=== PATIENT | male | born 1935 | race Hispanic/Latino ===

== ENCOUNTER 2017-10-12 06:13 | Inpatient (IN) | payer OTHER ==
[2017-10-10 13:12] LABS: BASOPHILS % (AUTO) 0.9 % (0.0-5.0); EOSINOPHILS % (AUTO) 2.8 % (0.0-8.0); LYMPHOCYTES % (AUTO) 20.6 % (21.0-51.0); MEAN CORPUSCULAR HEMOGLOBIN 31.3 pg (27.0-33.0); MEAN CORPUSCULAR HGB CONC 34.9 g/dL (32.0-36.0); MEAN CORPUSCULAR VOLUME 89.5 fL (79-99); MONOCYTES % (AUTO) 10.8 % (3.0-13.0); NEUTROPHILS % (AUTO) 64.9 % (40.0-77.0); PLATELET COUNT (AUTO) 174 K/uL (130-400); RED BLOOD CELL COUNT(AUTO) 3.47 MIL/uL (4.50-6.20); RED CELL DISTRIBUTION WIDTH 15.2 % (11.0-15.5); WHITE BLOOD COUNT (AUTO) 9.4 K/uL (4.8-10.8)
[2017-10-10 13:29] LABS: INR 0.96 (0.85-1.15); PARTIAL THROMBOPLASTIN TIME 25.4 SEC (26.3-35.5); PROTHROMBIN TIME 10.1 SEC (9.6-11.6)
[2017-10-10 13:31] LABS: ALBUMIN 3.6 g/dL (3.5-5.0); BILIRUBIN,TOTAL 0.4 mg/dL (0.2-1.0); CREATININE 2.4 mg/dL (0.5-1.5); TOTAL PROTEIN, SERUM 7.2 g/dL (6.0-8.3)
[2017-10-10 13:35] LABS: HEMOGLOBIN A1C 5.9 % (4.0-6.0)
[2017-10-10 14:22] VITALS: BP 165/53
[2017-10-12] VITALS (27 sets, daily range): BP systolic 101–196; BP diastolic 42–77
[~2017-10-12] VITALS: Ht 174 cm; Wt 86.6 kg
[~2017-10-12 06:13] MED LIST: ATOR20TA65 PO; CEFUROXIME 1.5GM+NS 100ML 100 ML IV SCH; CEFUROXIME SODIUM 1.5 GM VIAL IVP SCH; CHOL100046 PO; DOCU100C33 PO; ESCI10TA PO; FERR325T22 PO; FINA5TAB41 PO; FURO80TA3 PO; HYDR-4153 PO; SENN-175 PO; TAMS0.4C32 PO; TYL3 PO
[2017-10-12] MEDS ORDERED: OCTYL 2-CYANOACRYLATE 1 EACH TP ONE (06:46)
[2017-10-12] MEDS ORDERED: BACITRACIN 50,000 UNIT VIAL ONE (06:47)
[2017-10-12] MEDS ORDERED: SODIUM CHLORIDE 0.9% 1000ML 1,000 ML IV ONE (06:58)
[2017-10-12] MEDS ORDERED: CEFUROXIME SODIUM 1.5 GM VIAL ONE (06:59)
[2017-10-12] MEDS ORDERED: DELNIDO FORMULA 1 BAG IV ONE (07:35)
[2017-10-12] MEDS ORDERED: THROMBIN-JMI 5000 UNIT/VIAL TP ONE (07:35)
[2017-10-12] MEDS ORDERED: AMIODARONE HCL 900MG/18ML IV ONE ×2 (07:54→10:55)
[2017-10-12] MEDS ORDERED: AMINOCAPROIC ACID 250 MG/ML 20 ML VIAL IV ONE (07:54)
[2017-10-12] MEDS ORDERED: ESMOLOL HCL 10 MG/ML 10 ML VIAL ONE (07:54)
[2017-10-12] MEDS ORDERED: PROTAMINE SULFATE 10 MG/ML 25ML VIAL IV ONE (07:54)
[2017-10-12] MEDS ORDERED: MILRINONE-D5W 20 MG/100 ML 0 ML IV ONE (07:54)
[2017-10-12] MEDS ORDERED: LIDOCAINE PF 2% 5ML ABBOJECT ONE (07:54)
[2017-10-12] MEDS ORDERED: NOREPINEPHRINE BITARTRATE 1 MG/1 ML ML IV ONE ×2 (07:54→09:40)
[2017-10-12] MEDS ORDERED: EPINEPHRINE 1 MG/ML AMPULE ONE (07:54)
[2017-10-12] MEDS ORDERED: ROCURONIUM BROMIDE 10MG/1ML 5ML VL ONE ×3 (07:54→11:04)
[2017-10-12] MEDS ORDERED: HEPARIN SODIUM 1000UNIT/ML 10ML VIAL ONE (07:54)
[2017-10-12] MEDS ORDERED: GLYCOPYRROLATE 0.2 MG/ML 5 ML VIAL ONE (07:54)
[2017-10-12] MEDS ORDERED: PROPOFOL 10 MG/ML 20ML VIAL IV ONE (07:55)
[2017-10-12] MEDS ORDERED: MIDAZOLAM HCL 1 MG/ML 5ML VIAL ONE (07:55)
[2017-10-12] MEDS ORDERED: FENTANYL CITRATE PF 50 MCG/1 ML 2ML VIAL ONE ×3 (07:59→10:46)
[2017-10-12 08:34] LABS: ABG BASE EXCESS 2.4 mmol/L (-2.0-3.0); ABG HCO3 27.5 mmol/L (21.0-28.0); ABG PCO2 45 mmHg (35-48)
[2017-10-12] MEDS ORDERED: NITROGLYCERIN 50 MG/D5% WATER 1 BOT ONE (09:00)
[2017-10-12 09:51] LABS: ABG BASE EXCESS -6.4 mmol/L (-2.0-3.0); ABG HCO3 20.1 mmol/L (21.0-28.0); ABG OXYGEN SATURATION 99.3 % (95.0-99.0); ABG PCO2 45 mmHg (35-48)
[2017-10-12] MEDS ORDERED: SODIUM CHLORIDE 0.9% 500ML 500 ML IV SCH (10:21)
[2017-10-12] MEDS ORDERED: PROTAMINE SULFATE 10 MG/ML 5 ML VIAL ONE (10:22)
[2017-10-12 10:24] LABS: ABG HCO3 26.6 mmol/L (21.0-28.0); ABG OXYGEN SATURATION 99.2 % (95.0-99.0); ABG PCO2 41 mmHg (35-48)
[2017-10-12] MEDS ORDERED: ONDANSETRON HCL 4 MG/2 ML VIAL IV PRN (10:30)
[2017-10-12] MEDS ORDERED: MAGNESIUM 2GM PREMIX 50ML 50 ML IV PRN (10:30)
[2017-10-12] MEDS ORDERED: ALBUMIN (HUMAN) 5% 250 ML IV PRN (10:30)
[2017-10-12] MEDS ORDERED: NICARDIPINE HCL 100 MG in SODIUM CHLORIDE 0.9% 60 ML IV PRN (10:30)
[2017-10-12] MEDS ORDERED: POTASSIUM CHLORIDE 20MEQ/100ML 100 ML IV PRN (10:30)
[2017-10-12] MEDS ORDERED: ACETAMINOPHEN 650 MG SUPPOSITORY RC PRN (10:30)
[2017-10-12] MEDS ORDERED: SODIUM BICARB 8.4% 50ML SYRINGE IV PRN (10:30)
[2017-10-12] MEDS ORDERED: EPINEPHRINE 2 MG in SODIUM CHLORIDE 0.9% 250 ML IV PRN (10:30)
[2017-10-12] MEDS ORDERED: SODIUM CHLORIDE 0.9% 250 ML IV PRN (10:30)
[2017-10-12] MEDS ORDERED: CALCIUM GLUCONATE 1 GM in SODIUM CHLORIDE 0.9% 50 ML IV PRN (10:30)
[2017-10-12] MEDS ORDERED: PROPOFOL 1000 MG/100 ML 100 ML IV PRN (10:30)
[2017-10-12] MEDS ORDERED: NOREPINEPHRINE 4MG/NS 250ML 250 ML IV PRN (10:30)
[2017-10-12] MEDS ORDERED: INSULIN REGULAR, HUMAN 3ML 100 UNIT in SODIUM CHLORIDE 0.9% 99 ML IV SCH ×2 (10:30)
[2017-10-12] MEDS ORDERED: SODIUM CHLORIDE 0.9% 10 ML VIAL IVP PRN (10:30)
[2017-10-12] MEDS ORDERED: SODIUM CHLORIDE 0.9% 1000ML 1,000 ML IV SCH (10:30)
[2017-10-12] MEDS ORDERED: ACETAMINOPHEN 325 MG TAB PO PRN (10:30)
[2017-10-12] MEDS ORDERED: GLUCAGON 1MG KIT 1 MG ML IM PRN (10:30)
[2017-10-12] MEDS ORDERED: MORPHINE SULFATE 4 MG/1ML SYG IV PRN (10:30)
[2017-10-12] MEDS ORDERED: POTASSIUM PHOS 15 mMOL+NS250ML 250 ML IV PRN (10:30)
[2017-10-12] MEDS ORDERED: HYDROCODONE/ACETAMINOPHEN 5/325 MG TAB PO PRN (10:30)
[2017-10-12] MEDS ORDERED: MORPHINE SULFATE 2 MG/ML 1ML SYG IV PRN (10:30)
[2017-10-12] MEDS ORDERED: DEXTROSE 50%-WATER 50 ML DISP.SYRIN IV PRN (10:30)
[2017-10-12] MEDS ORDERED: AMINOCAPROIC ACID 15,000 MG in SODIUM CHLORIDE 0.9% 250 ML IV SCH (10:30)
[2017-10-12] MEDS ORDERED: FENTANYL CITRATE PF 50 MCG/1 ML 5ML AMP IV ONE (10:47)
[2017-10-12 10:53] LABS: ABG BASE EXCESS -6.6 mmol/L (-2.0-3.0); ABG HCO3 19.5 mmol/L (21.0-28.0); ABG OXYGEN SATURATION 98.2 % (95.0-99.0); ABG PCO2 41 mmHg (35-48)
[2017-10-12] MEDS ORDERED: SODIUM BICARB 8.4% 50ML SYRINGE ONE (11:04)
[2017-10-12 11:53] LABS: MEAN CORPUSCULAR HEMOGLOBIN 31.1 pg (27.0-33.0); MEAN CORPUSCULAR HGB CONC 34.7 g/dL (32.0-36.0); MEAN CORPUSCULAR VOLUME 89.5 fL (79-99); PLATELET COUNT (AUTO) 84 K/uL (130-400); RED BLOOD CELL COUNT(AUTO) 3.02 MIL/uL (4.50-6.20); RED CELL DISTRIBUTION WIDTH 15.2 % (11.0-15.5); WHITE BLOOD COUNT (AUTO) 24.9 K/uL (4.8-10.8)
[2017-10-12] MEDS ORDERED: CALCIUM CHLORIDE 100 MG/ML 10 ML SYG IVP ONE (12:00)
[2017-10-12] MEDS ORDERED: SODIUM BICARB 8.4% 50ML SYRINGE IVP ONE (12:00)
[2017-10-12] MEDS ORDERED: ALBUMIN (HUMAN) 25% 50 ML IV ONE (12:00)
[2017-10-12] MEDS ORDERED: MANNITOL 25% 50ML VIAL IV ONE (12:00)
[2017-10-12] MEDS ORDERED: HEPARIN SODIUM 1000UNIT/ML 10ML VIAL IV ONE (12:00)
[2017-10-12 12:04] LABS: CREATININE 2.2 mg/dL (0.5-1.5); MAGNESIUM 2.4 mg/dL (1.80-2.40); PHOSPHORUS 4.1 mg/dL (2.5-4.9); POTASSIUM 3.1 mmol/L (3.5-5.1)
[2017-10-12 12:29] LABS: ABG BASE EXCESS -2.2 mmol/L (-2.0-3.0); ABG HCO3 23.1 mmol/L (21.0-28.0); ABG PCO2 42 mmHg (35-48)
[2017-10-12] MEDS: NITROGLYCERIN 50 MG/D5% WATER 250 BOT IV SCH (14:11)
[2017-10-12 17:29] LABS: CREATININE 2.3 mg/dL (0.5-1.5); MAGNESIUM 2.3 mg/dL (1.80-2.40); POTASSIUM 3.9 mmol/L (3.5-5.1)
[2017-10-12 17:32] LABS: ABG BASE EXCESS 2.1 mmol/L (-2.0-3.0); ABG HCO3 26.8 mmol/L (21.0-28.0); ABG OXYGEN SATURATION 98.2 % (95.0-99.0); ABG PCO2 42 mmHg (35-48)
[2017-10-12] MEDS ORDERED: CEFUROXIME 1.5GM+NS 100ML 100 ML IV SCH (18:30)
[2017-10-12] MEDS ORDERED: WATER FOR INJECTION,STERILE 20 ML VIAL IJ PRN (19:00)
[2017-10-12 20:12] LABS: ABG BASE EXCESS 3.2 mmol/L (-2.0-3.0); ABG HCO3 28.8 mmol/L (21.0-28.0); ABG OXYGEN SATURATION 96.8 % (95.0-99.0); ABG PCO2 49 mmHg (35-48)
[2017-10-12] MEDS: CEFUROXIME SODIUM 1.5 GM VIAL IVP SCH (20:14)
[2017-10-12] MEDS ORDERED: NICARDIPINE IN NACL, ISO-OSM 200 ML IV ONE (20:37)
[2017-10-13] VITALS (25 sets, daily range): BP systolic 97–192; BP diastolic 36–68
[2017-10-13] MEDS: HYDROCODONE/ACETAMINOPHEN 5/325 MG TAB PO PRN ×3 (02:08→22:03)
[2017-10-13] MEDS: NITROGLYCERIN 50 MG/D5% WATER 250 BOT IV SCH (02:13)
[2017-10-13 04:23] LABS: HEMATOCRIT 27.3 % (42-54); MEAN CORPUSCULAR HEMOGLOBIN 30.6 pg (27.0-33.0); MEAN CORPUSCULAR HGB CONC 34.5 g/dL (32.0-36.0); MEAN CORPUSCULAR VOLUME 88.8 fL (79-99); PLATELET COUNT (AUTO) 72 K/uL (130-400); RED BLOOD CELL COUNT(AUTO) 3.07 MIL/uL (4.50-6.20); RED CELL DISTRIBUTION WIDTH 15.4 % (11.0-15.5); WHITE BLOOD COUNT (AUTO) 20.8 K/uL (4.8-10.8)
[2017-10-13 04:33] LABS: PARTIAL THROMBOPLASTIN TIME 25.5 SEC (26.3-35.5); PROTHROMBIN TIME 10.5 SEC (9.6-11.6)
[2017-10-13 04:52] LABS: ALBUMIN 2.7 g/dL (3.5-5.0); BILIRUBIN,TOTAL 1.2 mg/dL (0.2-1.0); CREATININE 2.6 mg/dL (0.5-1.5); MAGNESIUM 2.3 mg/dL (1.80-2.40); POTASSIUM 3.7 mmol/L (3.5-5.1); TOTAL PROTEIN, SERUM 5.7 g/dL (6.0-8.3)
[2017-10-13 04:52] LABS: ABG BASE EXCESS 1.7 mmol/L (-2.0-3.0); ABG HCO3 24.6 mmol/L (21.0-28.0); ABG OXYGEN SATURATION 98.1 % (95.0-99.0); ABG PCO2 34 mmHg (35-48)
[2017-10-13] MEDS ORDERED: NICARDIPINE IN NACL, ISO-OSM 200 ML IV ONE (05:39)
[2017-10-13] MEDS ORDERED: DEXAMETHASONE SOD PHOSPHATE 4 MG/ML 1ML VIAL IVP SCH (08:00)
[2017-10-13] MEDS ORDERED: PHARMACY COMMUNICATION MISC SCH (08:00)
[2017-10-13] MEDS ORDERED: HYDRALAZINE HCL 20 MG/ML VIAL IV PRN (08:00)
[2017-10-13] MEDS: CEFUROXIME SODIUM 1.5 GM VIAL IVP SCH ×2 (08:24→22:30)
[2017-10-13] MEDS: PANTOPRAZOLE SODIUM 40 MG TABLET.DR PO SCH (08:29)
[2017-10-13] MEDS: AMLODIPINE BESYLATE 5 MG TAB PO SCH (08:29)
[2017-10-13] MEDS: DOCUSATE SODIUM 100 MG CAP PO SCH (08:36)
[2017-10-13] MEDS: ASPIRIN 81MG TAB.CHEW PO SCH (08:36)
[2017-10-13] MEDS: FINASTERIDE 5 MG TABLET PO SCH (08:38)
[2017-10-13] MEDS: TAMSULOSIN HCL 0.4 MG CAP.ER.24H PO SCH (08:38)
[2017-10-13] MEDS ORDERED: DEXAMETHASONE IV SCH (08:45)
[2017-10-13] MEDS ORDERED: SODIUM CHLORIDE 0.9% IV SCH (08:45)
[2017-10-13] MEDS: SENNOSIDES 8.6 MG TABLET PO SCH (08:57)
[2017-10-13] MEDS: CITALOPRAM 20 MG TABLET PO SCH (08:58)
[2017-10-13] MEDS ORDERED: FUROSEMIDE 40 MG TABLET PO SCH (09:00)
[2017-10-13] MEDS ORDERED: ONDANSETRON HCL MDV 20ML 2 MG/ML VIAL IVP PRN (13:00)
[2017-10-13] MEDS: ATORVASTATIN CALCIUM 20 MG TABLET PO SCH (22:02)
[2017-10-14] VITALS (24 sets, daily range): BP systolic 95–147; BP diastolic 43–72
[2017-10-14 06:11] LABS: HEMATOCRIT 27.5 % (42-54); MEAN CORPUSCULAR HEMOGLOBIN 30.9 pg (27.0-33.0); MEAN CORPUSCULAR HGB CONC 34.4 g/dL (32.0-36.0); MEAN CORPUSCULAR VOLUME 89.7 fL (79-99); PLATELET COUNT (AUTO) 58 K/uL (130-400); RED BLOOD CELL COUNT(AUTO) 3.06 MIL/uL (4.50-6.20); RED CELL DISTRIBUTION WIDTH 15.7 % (11.0-15.5); WHITE BLOOD COUNT (AUTO) 24.9 K/uL (4.8-10.8)
[2017-10-14 06:22] LABS: INR 1.02 (0.85-1.15); PARTIAL THROMBOPLASTIN TIME 32.7 SEC (26.3-35.5); PROTHROMBIN TIME 10.7 SEC (9.6-11.6)
[2017-10-14 06:25] LABS: B-TYPE NATRIURETIC PEPTIDE 2000 pg/mL (0-100)
[2017-10-14 06:32] LABS: ALBUMIN 2.6 g/dL (3.5-5.0); BILIRUBIN,TOTAL 0.7 mg/dL (0.2-1.0); CREATININE 2.7 mg/dL (0.5-1.5); MAGNESIUM 2.3 mg/dL (1.80-2.40); PHOSPHORUS 4.8 mg/dL (2.5-4.9)
[2017-10-14] MEDS ORDERED: DEXAMETHASONE SOD PHOSPHATE 4 MG/ML 1ML VIAL IVP SCH (08:00)
[2017-10-14 09:03] LABS: BILIRUBIN,URINE NEGATIVE (NEGATIVE); COLOR,URINE YELLOW (YELLOW); GLUCOSE, URINE (UA) NEGATIVE (NEGATIVE); KETONES,URINE 5 mg/dL (NEGATIVE); LEUKOCYTE ESTERASE ,URINE MODERATE (NEGATIVE); NITRATE,URINE NEGATIVE (NEGATIVE); OCCULT BLOOD,URINE LARGE (NEGATIVE); PROTEIN,URINE 100 (NEGATIVE); UROBILINOGEN,URINE 0.2 mg/dL (0.2-1.0)
[2017-10-14 09:09] LABS: APPEARANCE,URINE SLIGHTLY CLOUDY (CLEAR)
[2017-10-14 09:17] LABS: BACTERIA,URINE Moderate /HPF (None Seen)
[2017-10-14] MEDS: CITALOPRAM 20 MG TABLET PO SCH (10:17)
[2017-10-14] MEDS: TAMSULOSIN HCL 0.4 MG CAP.ER.24H PO SCH (10:17)
[2017-10-14] MEDS: DOCUSATE SODIUM 100 MG CAP PO SCH (10:17)
[2017-10-14] MEDS: FUROSEMIDE 40 MG TABLET PO SCH ×2 (10:17→20:05)
[2017-10-14] MEDS: ASPIRIN 81MG TAB.CHEW PO SCH (10:17)
[2017-10-14] MEDS: FINASTERIDE 5 MG TABLET PO SCH (10:18)
[2017-10-14] MEDS: AMLODIPINE BESYLATE 5 MG TAB PO SCH (10:18)
[2017-10-14] MEDS: SENNOSIDES 8.6 MG TABLET PO SCH (10:18)
[2017-10-14] MEDS: PANTOPRAZOLE SODIUM 40 MG TABLET.DR PO SCH (10:18)
[2017-10-14] MEDS ORDERED: CEFTRIAXONE 1GM/D5W 50ML 50 ML IV SCH (12:45)
[2017-10-14] MEDS: CEFTRIAXONE SODIUM 1 GM IVP SCH (17:32)
[2017-10-14] MEDS: ATORVASTATIN CALCIUM 20 MG TABLET PO SCH (20:05)
[2017-10-14] MEDS: HYDROCODONE/ACETAMINOPHEN 5/325 MG TAB PO PRN (21:13)
[2017-10-15] VITALS (25 sets, daily range): BP systolic 102–164; BP diastolic 46–81
[2017-10-15] MEDS: IPRATROPIUM/ALBUTEROL SULFATE 3 ML SOLUTION IH SCH ×6 (02:31→22:32)
[2017-10-15] MEDS ORDERED: FUROSEMIDE 10 MG/ML 4ML VIAL IV SCH (03:30)
[2017-10-15 03:56] LABS: HEMATOCRIT 26.3 % (42-54); MEAN CORPUSCULAR HEMOGLOBIN 29.3 pg (27.0-33.0); MEAN CORPUSCULAR HGB CONC 33.2 g/dL (32.0-36.0); MEAN CORPUSCULAR VOLUME 88.3 fL (79-99); PLATELET COUNT (AUTO) 47 K/uL (130-400); RED BLOOD CELL COUNT(AUTO) 2.98 MIL/uL (4.50-6.20); RED CELL DISTRIBUTION WIDTH 15.5 % (11.0-15.5); WHITE BLOOD COUNT (AUTO) 20.5 K/uL (4.8-10.8)
[2017-10-15 04:21] LABS: % IRON SATURATION 13.3 % (30-44)
[2017-10-15 04:30] LABS: ALBUMIN 2.4 g/dL (3.5-5.0); BILIRUBIN,TOTAL 0.8 mg/dL (0.2-1.0); CREATININE 3.7 mg/dL (0.5-1.5); MAGNESIUM 2.2 mg/dL (1.80-2.40); PHOSPHORUS 5.1 mg/dL (2.5-4.9); POTASSIUM 4.2 mmol/L (3.5-5.1); TOTAL PROTEIN, SERUM 5.9 g/dL (6.0-8.3)
[2017-10-15] MEDS: INSULIN HUMULIN R 100 UNIT/ML 3ML SQ SCH ×4 (06:35→20:29)
[2017-10-15] MEDS ORDERED: DEXAMETHASONE SOD PHOSPHATE 4 MG/ML 1ML VIAL IVP SCH (08:45)
[2017-10-15] MEDS: TAMSULOSIN HCL 0.4 MG CAP.ER.24H PO SCH (08:55)
[2017-10-15] MEDS: CITALOPRAM 20 MG TABLET PO SCH (08:55)
[2017-10-15] MEDS: DOCUSATE SODIUM 100 MG CAP PO SCH (08:55)
[2017-10-15] MEDS: ASPIRIN 81MG TAB.CHEW PO SCH (08:55)
[2017-10-15] MEDS: PANTOPRAZOLE SODIUM 40 MG TABLET.DR PO SCH (08:55)
[2017-10-15] MEDS: FUROSEMIDE 40 MG TABLET PO SCH ×2 (08:56→20:04)
[2017-10-15] MEDS: FINASTERIDE 5 MG TABLET PO SCH (08:56)
[2017-10-15] MEDS: SENNOSIDES 8.6 MG TABLET PO SCH (08:56)
[2017-10-15] MEDS: SODIUM CHLORIDE 0.9% 1000ML 1,000 ML IV SCH (08:57)
[2017-10-15] MEDS: CEFTRIAXONE SODIUM 1 GM IVP SCH (12:00)
[2017-10-15] MEDS: ATORVASTATIN CALCIUM 20 MG TABLET PO SCH (20:04)
[2017-10-16] VITALS (24 sets, daily range): BP systolic 123–165; BP diastolic 44–92
[2017-10-16] MEDS: IPRATROPIUM/ALBUTEROL SULFATE 3 ML SOLUTION IH SCH ×6 (02:18→21:47)
[2017-10-16] MEDS: SODIUM CHLORIDE 0.9% 1000ML 1,000 ML IV SCH (03:13)
[2017-10-16 03:57] LABS: HEMATOCRIT 24.8 % (42-54); MEAN CORPUSCULAR HEMOGLOBIN 31.2 pg (27.0-33.0); MEAN CORPUSCULAR VOLUME 89.2 fL (79-99); PLATELET COUNT (AUTO) 48 K/uL (130-400); RED BLOOD CELL COUNT(AUTO) 2.78 MIL/uL (4.50-6.20); RED CELL DISTRIBUTION WIDTH 15.4 % (11.0-15.5); WHITE BLOOD COUNT (AUTO) 16.2 K/uL (4.8-10.8)
[2017-10-16 04:08] LABS: MAGNESIUM 2.2 mg/dL (1.80-2.40); PHOSPHORUS 5.1 mg/dL (2.5-4.9); POTASSIUM 3.4 mmol/L (3.5-5.1)
[2017-10-16 05:10] LABS: BAND NEUTROPHILS % (MANUAL) 11 % (0-2); LYMPHOCYTES % (MANUAL) 8 % (22-44); MAN.DIFF COMMENT-IMPRESSION MANUAL DIFFERENTIAL; MONOCYTES % (MANUAL) 9 % (2-9); SEGMENTED NEUTROPHILS % 72 % (40-70)
[2017-10-16 05:11] LABS: PLATELET MORPHOLOGY COMMENT MARKED DECREASED
[2017-10-16] MEDS: INSULIN HUMULIN R 100 UNIT/ML 3ML SQ SCH ×4 (06:20→21:00)
[2017-10-16] MEDS: TAMSULOSIN HCL 0.4 MG CAP.ER.24H PO SCH (08:56)
[2017-10-16] MEDS: DOCUSATE SODIUM 100 MG CAP PO SCH (08:56)
[2017-10-16] MEDS: PANTOPRAZOLE SODIUM 40 MG TABLET.DR PO SCH (08:56)
[2017-10-16] MEDS: FINASTERIDE 5 MG TABLET PO SCH (08:56)
[2017-10-16] MEDS: CITALOPRAM 20 MG TABLET PO SCH (08:56)
[2017-10-16] MEDS: ASPIRIN 81MG TAB.CHEW PO SCH (08:56)
[2017-10-16] MEDS: SENNOSIDES 8.6 MG TABLET PO SCH (08:56)
[2017-10-16] MEDS: FUROSEMIDE 40 MG TABLET PO SCH (09:00)
[2017-10-16] MEDS ORDERED: COMPOUND IV MISC 1 EACH IVSOLN MISC PRN (09:45)
[2017-10-16] MEDS: IRON SUCROSE COMPLEX 100 MG in SODIUM CHLORIDE 0.9% 50 ML IV SCH (10:12)
[2017-10-16] MEDS: CEFTRIAXONE SODIUM 1 GM IVP SCH (13:12)
[2017-10-16 20:44] LABS: ABG BASE EXCESS -1.5 mmol/L (-2.0-3.0); ABG HCO3 22.3 mmol/L (21.0-28.0); ABG OXYGEN SATURATION 86.2 % (95.0-99.0); ABG PCO2 34 mmHg (35-48)
[2017-10-16] MEDS ORDERED: FUROSEMIDE 10 MG/ML 4ML VIAL IV ONE (21:00)
[2017-10-16] MEDS: ATORVASTATIN CALCIUM 20 MG TABLET PO SCH (21:02)
[2017-10-17] VITALS (24 sets, daily range): BP systolic 117–161; BP diastolic 43–80
[2017-10-17] MEDS: IPRATROPIUM/ALBUTEROL SULFATE 3 ML SOLUTION IH SCH ×6 (02:07→21:28)
[2017-10-17 04:02] LABS: HEMATOCRIT 25.3 % (42-54); MEAN CORPUSCULAR HEMOGLOBIN 29.4 pg (27.0-33.0); MEAN CORPUSCULAR HGB CONC 33.4 g/dL (32.0-36.0); MEAN CORPUSCULAR VOLUME 88.1 fL (79-99); PLATELET COUNT (AUTO) 56 K/uL (130-400); RED BLOOD CELL COUNT(AUTO) 2.87 MIL/uL (4.50-6.20); RED CELL DISTRIBUTION WIDTH 15.4 % (11.0-15.5); WHITE BLOOD COUNT (AUTO) 17.4 K/uL (4.8-10.8)
[2017-10-17 04:14] LABS: CREATININE 3.9 mg/dL (0.5-1.5); POTASSIUM 3.3 mmol/L (3.5-5.1)
[2017-10-17 04:16] LABS: B-TYPE NATRIURETIC PEPTIDE 1120 pg/mL (0-100)
[2017-10-17] MEDS: INSULIN HUMULIN R 100 UNIT/ML 3ML SQ SCH ×4 (06:23→21:51)
[2017-10-17] MEDS ORDERED: CEFEPIME HCL IV SCH (09:00)
[2017-10-17] MEDS ORDERED: SODIUM CHLORIDE 0.9% IV SCH (09:00)
[2017-10-17] MEDS: DOCUSATE SODIUM 100 MG CAP PO SCH ×2 (09:00→18:15)
[2017-10-17] MEDS: TAMSULOSIN HCL 0.4 MG CAP.ER.24H PO SCH (09:13)
[2017-10-17] MEDS: PANTOPRAZOLE SODIUM 40 MG TABLET.DR PO SCH (09:13)
[2017-10-17] MEDS: CITALOPRAM 20 MG TABLET PO SCH (09:13)
[2017-10-17] MEDS: SENNOSIDES 8.6 MG TABLET PO SCH (09:13)
[2017-10-17] MEDS: ASPIRIN 81MG TAB.CHEW PO SCH (09:13)
[2017-10-17] MEDS: IRON SUCROSE COMPLEX 100 MG in SODIUM CHLORIDE 0.9% 50 ML IV SCH (09:13)
[2017-10-17] MEDS: FINASTERIDE 5 MG TABLET PO SCH (09:13)
[2017-10-17] MEDS: DOXYCYCLINE 100MG+NS 250ML 250 ML IV SCH ×2 (11:14→22:18)
[2017-10-17] MEDS ORDERED: MEROPENEM 500 MG VIAL ONE (13:19)
[2017-10-17] MEDS: CEFEPIME HCL 1 GM VIAL IVP SCH (13:22)
[2017-10-17] MEDS ORDERED: SODIUM CHLORIDE 3% FOR INHALATION 4 ML/AMP VIAL.NEB IH ONE ×2 (16:05→22:02)
[2017-10-17] MEDS: ATORVASTATIN CALCIUM 20 MG TABLET PO SCH (21:32)
[2017-10-18] VITALS (24 sets, daily range): BP systolic 121–160; BP diastolic 40–71
[2017-10-18] MEDS: CEFEPIME HCL 1 GM VIAL IVP SCH ×3 (00:27→22:15)
[2017-10-18] MEDS: IPRATROPIUM/ALBUTEROL SULFATE 3 ML SOLUTION IH SCH ×6 (01:47→22:30)
[2017-10-18 03:59] LABS: HEMATOCRIT 22.3 % (42-54); MEAN CORPUSCULAR HEMOGLOBIN 31.4 pg (27.0-33.0); MEAN CORPUSCULAR HGB CONC 35.5 g/dL (32.0-36.0); MEAN CORPUSCULAR VOLUME 88.4 fL (79-99); PLATELET COUNT (AUTO) 51 K/uL (130-400); RED BLOOD CELL COUNT(AUTO) 2.52 MIL/uL (4.50-6.20); RED CELL DISTRIBUTION WIDTH 15.4 % (11.0-15.5); WHITE BLOOD COUNT (AUTO) 12.5 K/uL (4.8-10.8)
[2017-10-18 04:20] LABS: CREATININE 3.7 mg/dL (0.5-1.5); POTASSIUM 3.1 mmol/L (3.5-5.1)
[2017-10-18] MEDS: INSULIN HUMULIN R 100 UNIT/ML 3ML SQ SCH ×4 (06:31→20:47)
[2017-10-18] MEDS: IRON SUCROSE COMPLEX 100 MG in SODIUM CHLORIDE 0.9% 50 ML IV SCH (08:07)
[2017-10-18] MEDS: TAMSULOSIN HCL 0.4 MG CAP.ER.24H PO SCH (08:08)
[2017-10-18] MEDS: FINASTERIDE 5 MG TABLET PO SCH (08:08)
[2017-10-18] MEDS: DOCUSATE SODIUM 100 MG CAP PO SCH (08:08)
[2017-10-18] MEDS: CITALOPRAM 20 MG TABLET PO SCH (08:08)
[2017-10-18] MEDS: PANTOPRAZOLE SODIUM 40 MG TABLET.DR PO SCH (08:08)
[2017-10-18] MEDS: ASPIRIN 81MG TAB.CHEW PO SCH (08:08)
[2017-10-18] MEDS: SENNOSIDES 8.6 MG TABLET PO SCH (08:08)
[2017-10-18] MEDS: DOXYCYCLINE 100MG+NS 250ML 250 ML IV SCH ×2 (08:28→20:47)
[2017-10-18] MEDS: POLYETHYLENE GLYCOL 3350 17 GM POWD.PACK PO SCH (09:30)
[2017-10-18] MEDS ORDERED: VANCOMYCIN 1GM+NS 250ML 250 ML IV PRN (10:15)
[2017-10-18] MEDS: ATORVASTATIN CALCIUM 20 MG TABLET PO SCH (20:46)
[2017-10-19] VITALS (24 sets, daily range): BP systolic 128–164; BP diastolic 39–89
[2017-10-19] MEDS: IPRATROPIUM/ALBUTEROL SULFATE 3 ML SOLUTION IH SCH ×6 (02:13→22:03)
[2017-10-19 03:44] LABS: HEMATOCRIT 21.9 % (42-54); MEAN CORPUSCULAR HEMOGLOBIN 29.9 pg (27.0-33.0); MEAN CORPUSCULAR HGB CONC 33.6 g/dL (32.0-36.0); MEAN CORPUSCULAR VOLUME 88.8 fL (79-99); PLATELET COUNT (AUTO) 64 K/uL (130-400); RED BLOOD CELL COUNT(AUTO) 2.47 MIL/uL (4.50-6.20); RED CELL DISTRIBUTION WIDTH 15.4 % (11.0-15.5)
[2017-10-19 04:07] LABS: CREATININE 3.5 mg/dL (0.5-1.5); POTASSIUM 3.3 mmol/L (3.5-5.1)
[2017-10-19 06:27] LABS: PARTIAL THROMBOPLASTIN TIME 35.2 SEC (26.3-35.5); PROTHROMBIN TIME 10.5 SEC (9.6-11.6)
[2017-10-19] MEDS: INSULIN HUMULIN R 100 UNIT/ML 3ML SQ SCH ×4 (07:28→20:19)
[2017-10-19] MEDS ORDERED: POTASSIUM CHLORIDE 20 MEQ ERTAB PO SCH (07:45)
[2017-10-19] MEDS ORDERED: MAGNESIUM 2GM PREMIX 50ML 50 ML IV PRN (07:45)
[2017-10-19] MEDS: CEFEPIME HCL 1 GM VIAL IVP SCH ×2 (08:51→21:56)
[2017-10-19] MEDS: IRON SUCROSE COMPLEX 100 MG in SODIUM CHLORIDE 0.9% 50 ML IV SCH (08:51)
[2017-10-19] MEDS: DOXYCYCLINE 100MG+NS 250ML 250 ML IV SCH ×2 (08:52→20:16)
[2017-10-19] MEDS ORDERED: LACTULOSE 20 GM/30 ML UDCUP PO PRN (09:15)
[2017-10-19] MEDS ORDERED: VANCOMYCIN 1GM+NS 250ML 250 ML IV SCH (09:15)
[2017-10-19] MEDS: TAMSULOSIN HCL 0.4 MG CAP.ER.24H PO SCH (09:31)
[2017-10-19] MEDS: CITALOPRAM 20 MG TABLET PO SCH (09:31)
[2017-10-19] MEDS: SENNOSIDES 8.6 MG TABLET PO SCH (09:31)
[2017-10-19] MEDS: PANTOPRAZOLE SODIUM 40 MG TABLET.DR PO SCH (09:31)
[2017-10-19] MEDS: FINASTERIDE 5 MG TABLET PO SCH (09:31)
[2017-10-19] MEDS: POLYETHYLENE GLYCOL 3350 17 GM POWD.PACK PO SCH (09:32)
[2017-10-19] MEDS: FUROSEMIDE 20 MG TABLET PO SCH ×2 (09:32→18:09)
[2017-10-19] MEDS: DOCUSATE SODIUM 100 MG CAP PO SCH (09:32)
[2017-10-19] MEDS: ASPIRIN 81MG TAB.CHEW PO SCH (09:32)
[2017-10-19] MEDS: ATORVASTATIN CALCIUM 20 MG TABLET PO SCH (21:56)
[2017-10-20] VITALS (24 sets, daily range): BP systolic 121–166; BP diastolic 52–79
[2017-10-20] MEDS: IPRATROPIUM/ALBUTEROL SULFATE 3 ML SOLUTION IH SCH ×6 (02:12→21:53)
[2017-10-20 04:28] LABS: MEAN CORPUSCULAR HEMOGLOBIN 31.1 pg (27.0-33.0); MEAN CORPUSCULAR HGB CONC 34.7 g/dL (32.0-36.0); MEAN CORPUSCULAR VOLUME 89.8 fL (79-99); PLATELET COUNT (AUTO) 83 K/uL (130-400); RED BLOOD CELL COUNT(AUTO) 2.45 MIL/uL (4.50-6.20); RED CELL DISTRIBUTION WIDTH 15.6 % (11.0-15.5); WHITE BLOOD COUNT (AUTO) 14.5 K/uL (4.8-10.8)
[2017-10-20 04:39] LABS: INR 0.99 (0.85-1.15); PARTIAL THROMBOPLASTIN TIME 30.9 SEC (26.3-35.5); PROTHROMBIN TIME 10.4 SEC (9.6-11.6)
[2017-10-20 04:47] LABS: CREATININE 3.3 mg/dL (0.5-1.5); POTASSIUM 3.8 mmol/L (3.5-5.1)
[2017-10-20] MEDS: INSULIN HUMULIN R 100 UNIT/ML 3ML SQ SCH ×4 (06:23→20:21)
[2017-10-20] MEDS: DOXYCYCLINE 100MG+NS 250ML 250 ML IV SCH ×2 (08:02→20:41)
[2017-10-20] MEDS: CEFEPIME HCL 1 GM VIAL IVP SCH ×2 (08:14→20:42)
[2017-10-20] MEDS: IRON SUCROSE COMPLEX 100 MG in SODIUM CHLORIDE 0.9% 50 ML IV SCH (08:15)
[2017-10-20] MEDS: SENNOSIDES 8.6 MG TABLET PO SCH (09:00)
[2017-10-20] MEDS: PANTOPRAZOLE SODIUM 40 MG TABLET.DR PO SCH (09:00)
[2017-10-20] MEDS: FUROSEMIDE 20 MG TABLET PO SCH ×2 (09:00→18:32)
[2017-10-20] MEDS: POLYETHYLENE GLYCOL 3350 17 GM POWD.PACK PO SCH (09:00)
[2017-10-20] MEDS: CITALOPRAM 20 MG TABLET PO SCH (09:00)
[2017-10-20] MEDS: FINASTERIDE 5 MG TABLET PO SCH (09:00)
[2017-10-20] MEDS: DOCUSATE SODIUM 100 MG CAP PO SCH (09:00)
[2017-10-20] MEDS: TAMSULOSIN HCL 0.4 MG CAP.ER.24H PO SCH (09:00)
[2017-10-20] MEDS: ASPIRIN 81MG TAB.CHEW PO SCH (09:00)
[2017-10-20] MEDS ORDERED: BUPIVACAINE/PF 0.25% 30ML VIAL IJ ONE (16:13)
[2017-10-20] MEDS ORDERED: MEPERIDINE-PF 25 MG/ML SYG ONE ×2 (16:13→16:54)
[2017-10-20] MEDS ORDERED: MIDAZOLAM HCL 1 MG/ML 2ML VIAL ONE ×2 (16:13→16:43)
[2017-10-20] MEDS ORDERED: LIDOCAINE HCL 1% MDV 50ML VIAL ONE (16:15)
[2017-10-20] MEDS ORDERED: VANCOMYCIN 1GM+NS 250ML 250 ML IV ONE ×2 (16:15→16:16)
[2017-10-20 20:06] LABS: BASOPHILS % (AUTO) 0.3 % (0.0-5.0); EOSINOPHILS % (AUTO) 3.9 % (0.0-8.0); HEMATOCRIT 22.2 % (42-54); LYMPHOCYTES % (AUTO) 10.2 % (21.0-51.0); MEAN CORPUSCULAR HEMOGLOBIN 31.3 pg (27.0-33.0); MEAN CORPUSCULAR HGB CONC 34.9 g/dL (32.0-36.0); MEAN CORPUSCULAR VOLUME 89.6 fL (79-99); MONOCYTES % (AUTO) 11.2 % (3.0-13.0); NEUTROPHILS % (AUTO) 74.4 % (40.0-77.0); PLATELET COUNT (AUTO) 94 K/uL (130-400); RED BLOOD CELL COUNT(AUTO) 2.48 MIL/uL (4.50-6.20); RED CELL DISTRIBUTION WIDTH 15.6 % (11.0-15.5); WHITE BLOOD COUNT (AUTO) 12.7 K/uL (4.8-10.8)
[2017-10-20 20:34] LABS: ALBUMIN 2.1 g/dL (3.5-5.0); BILIRUBIN,TOTAL 0.7 mg/dL (0.2-1.0); CREATININE 3.1 mg/dL (0.5-1.5); MAGNESIUM 1.9 mg/dL (1.80-2.40); PHOSPHORUS 4.2 mg/dL (2.5-4.9); TOTAL PROTEIN, SERUM 5.8 g/dL (6.0-8.3)
[2017-10-20] MEDS: ATORVASTATIN CALCIUM 20 MG TABLET PO SCH (20:48)
[2017-10-21] VITALS (27 sets, daily range): BP systolic 132–162; BP diastolic 60–82
[2017-10-21] MEDS: IPRATROPIUM/ALBUTEROL SULFATE 3 ML SOLUTION IH SCH ×6 (01:51→22:06)
[2017-10-21 04:32] LABS: HEMATOCRIT 22.2 % (42-54); MEAN CORPUSCULAR HEMOGLOBIN 30.1 pg (27.0-33.0); MEAN CORPUSCULAR HGB CONC 33.5 g/dL (32.0-36.0); MEAN CORPUSCULAR VOLUME 89.7 fL (79-99); PLATELET COUNT (AUTO) 100 K/uL (130-400); RED BLOOD CELL COUNT(AUTO) 2.47 MIL/uL (4.50-6.20); RED CELL DISTRIBUTION WIDTH 15.8 % (11.0-15.5)
[2017-10-21 05:09] LABS: POTASSIUM 3.8 mmol/L (3.5-5.1)
[2017-10-21] MEDS: INSULIN HUMULIN R 100 UNIT/ML 3ML SQ SCH ×4 (07:30→21:00)
[2017-10-21] MEDS: DOXYCYCLINE 100MG+NS 250ML 250 ML IV SCH ×2 (08:45→21:51)
[2017-10-21] MEDS: CITALOPRAM 20 MG TABLET PO SCH (08:45)
[2017-10-21] MEDS: POLYETHYLENE GLYCOL 3350 17 GM POWD.PACK PO SCH (08:45)
[2017-10-21] MEDS: PANTOPRAZOLE SODIUM 40 MG TABLET.DR PO SCH (08:45)
[2017-10-21] MEDS: METOPROLOL TARTRATE 25 MG TAB PO SCH ×2 (08:45→21:51)
[2017-10-21] MEDS: DOCUSATE SODIUM 100 MG CAP PO SCH (08:45)
[2017-10-21] MEDS: TAMSULOSIN HCL 0.4 MG CAP.ER.24H PO SCH (08:46)
[2017-10-21] MEDS: SENNOSIDES 8.6 MG TABLET PO SCH (08:46)
[2017-10-21] MEDS: FINASTERIDE 5 MG TABLET PO SCH (08:46)
[2017-10-21] MEDS: CEFEPIME HCL 1 GM VIAL IVP SCH ×2 (08:46→21:49)
[2017-10-21] MEDS: ASPIRIN 81MG TAB.CHEW PO SCH (08:46)
[2017-10-21] MEDS: FUROSEMIDE 20 MG TABLET PO SCH ×2 (08:46→17:45)
[2017-10-21] MEDS: IRON SUCROSE COMPLEX 100 MG in SODIUM CHLORIDE 0.9% 50 ML IV SCH (10:59)
[2017-10-21] MEDS ORDERED: FUROSEMIDE 10 MG/ML 4ML VIAL IV SCH (20:15)
[2017-10-21] MEDS: ATORVASTATIN CALCIUM 20 MG TABLET PO SCH (21:51)
[2017-10-22] MEDS: IPRATROPIUM/ALBUTEROL SULFATE 3 ML SOLUTION IH SCH ×6 (02:22→21:54)
[2017-10-22 03:55] VITALS: BP 145/65
[2017-10-22 04:47] LABS: ABG BASE EXCESS -2.2 mmol/L (-2.0-3.0); ABG HCO3 21.2 mmol/L (21.0-28.0); ABG OXYGEN SATURATION 98.4 % (95.0-99.0); ABG PCO2 33 mmHg (35-48)
[2017-10-22 05:03] LABS: BASOPHILS % (AUTO) 0.5 % (0.0-5.0); EOSINOPHILS % (AUTO) 3.8 % (0.0-8.0); LYMPHOCYTES % (AUTO) 12.1 % (21.0-51.0); MEAN CORPUSCULAR HEMOGLOBIN 31.7 pg (27.0-33.0); MEAN CORPUSCULAR HGB CONC 35.3 g/dL (32.0-36.0); MEAN CORPUSCULAR VOLUME 89.8 fL (79-99); MONOCYTES % (AUTO) 11.1 % (3.0-13.0); NEUTROPHILS % (AUTO) 72.5 % (40.0-77.0); PLATELET COUNT (AUTO) 105 K/uL (130-400); RED BLOOD CELL COUNT(AUTO) 2.26 MIL/uL (4.50-6.20); RED CELL DISTRIBUTION WIDTH 15.6 % (11.0-15.5); WHITE BLOOD COUNT (AUTO) 13.5 K/uL (4.8-10.8)
[2017-10-22 05:16] LABS: HEMATOCRIT 20.3 % (42-54)
[2017-10-22 05:33] LABS: ALBUMIN 1.9 g/dL (3.5-5.0); BILIRUBIN,TOTAL 0.5 mg/dL (0.2-1.0); CREATININE 2.9 mg/dL (0.5-1.5); MAGNESIUM 1.9 mg/dL (1.80-2.40); PHOSPHORUS 4.6 mg/dL (2.5-4.9); POTASSIUM 3.8 mmol/L (3.5-5.1); TOTAL PROTEIN, SERUM 5.5 g/dL (6.0-8.3)
[2017-10-22] MEDS: INSULIN HUMULIN R 100 UNIT/ML 3ML SQ SCH ×4 (06:06→20:42)
[2017-10-22 07:00] VITALS: BP 142/69
[2017-10-22] MEDS: IRON SUCROSE COMPLEX 100 MG in SODIUM CHLORIDE 0.9% 50 ML IV SCH ×2 (09:00→12:36)
[2017-10-22] MEDS: FINASTERIDE 5 MG TABLET PO SCH (09:39)
[2017-10-22] MEDS: METOPROLOL TARTRATE 25 MG TAB PO SCH ×2 (09:39→19:59)
[2017-10-22] MEDS: CITALOPRAM 20 MG TABLET PO SCH (09:40)
[2017-10-22] MEDS: TAMSULOSIN HCL 0.4 MG CAP.ER.24H PO SCH (09:40)
[2017-10-22] MEDS: PANTOPRAZOLE SODIUM 40 MG TABLET.DR PO SCH (09:40)
[2017-10-22] MEDS: POLYETHYLENE GLYCOL 3350 17 GM POWD.PACK PO SCH (09:40)
[2017-10-22] MEDS: SENNOSIDES 8.6 MG TABLET PO SCH (09:40)
[2017-10-22] MEDS: DOCUSATE SODIUM 100 MG CAP PO SCH (09:40)
[2017-10-22] MEDS: ASPIRIN 81MG TAB.CHEW PO SCH (09:40)
[2017-10-22] MEDS: FUROSEMIDE 20 MG TABLET PO SCH ×2 (09:40→17:03)
[2017-10-22] MEDS: DOXYCYCLINE 100MG+NS 250ML 250 ML IV SCH ×2 (09:41→19:55)
[2017-10-22] MEDS: CEFEPIME HCL 1 GM VIAL IVP SCH ×2 (09:41→19:58)
[2017-10-22 11:00] VITALS: BP 154/77
[2017-10-22 16:00] VITALS: BP 133/67
[2017-10-22 19:33] VITALS: BP 131/67
[2017-10-22] MEDS: ATORVASTATIN CALCIUM 20 MG TABLET PO SCH (19:59)
[2017-10-22] MEDS: EPOETIN ALFA 20,000 UNIT/ML VIAL SQ SCH (20:05)
[2017-10-22 23:58] VITALS: BP 154/68
[2017-10-23] MEDS: IPRATROPIUM/ALBUTEROL SULFATE 3 ML SOLUTION IH SCH ×6 (02:10→23:00)
[2017-10-23 03:57] VITALS: BP 146/67
[2017-10-23 04:50] LABS: HEMATOCRIT 21.3 % (42-54); MEAN CORPUSCULAR HEMOGLOBIN 30.3 pg (27.0-33.0); MEAN CORPUSCULAR HGB CONC 33.8 g/dL (32.0-36.0); MEAN CORPUSCULAR VOLUME 89.6 fL (79-99); PLATELET COUNT (AUTO) 116 K/uL (130-400); RED BLOOD CELL COUNT(AUTO) 2.37 MIL/uL (4.50-6.20); RED CELL DISTRIBUTION WIDTH 15.7 % (11.0-15.5); WHITE BLOOD COUNT (AUTO) 14.8 K/uL (4.8-10.8)
[2017-10-23 05:16] LABS: CREATININE 2.9 mg/dL (0.5-1.5); POTASSIUM 3.8 mmol/L (3.5-5.1)
[2017-10-23] MEDS: INSULIN HUMULIN R 100 UNIT/ML 3ML SQ SCH ×4 (06:10→21:00)
[2017-10-23 07:00] VITALS: BP 147/62
[2017-10-23] MEDS: DOXYCYCLINE 100MG+NS 250ML 250 ML IV SCH ×2 (08:31→21:49)
[2017-10-23] MEDS: ASPIRIN 81MG TAB.CHEW PO SCH (08:36)
[2017-10-23] MEDS: DOCUSATE SODIUM 100 MG CAP PO SCH (08:36)
[2017-10-23] MEDS: CITALOPRAM 20 MG TABLET PO SCH (08:36)
[2017-10-23] MEDS: TAMSULOSIN HCL 0.4 MG CAP.ER.24H PO SCH (08:37)
[2017-10-23] MEDS: FUROSEMIDE 20 MG TABLET PO SCH ×2 (08:37→17:26)
[2017-10-23] MEDS: METOPROLOL TARTRATE 25 MG TAB PO SCH ×2 (08:37→21:49)
[2017-10-23] MEDS: POLYETHYLENE GLYCOL 3350 17 GM POWD.PACK PO SCH (08:38)
[2017-10-23] MEDS: FINASTERIDE 5 MG TABLET PO SCH (08:39)
[2017-10-23] MEDS: PANTOPRAZOLE SODIUM 40 MG TABLET.DR PO SCH (08:39)
[2017-10-23] MEDS: SENNOSIDES 8.6 MG TABLET PO SCH (08:39)
[2017-10-23] MEDS: CEFEPIME HCL 1 GM VIAL IVP SCH ×2 (09:43→21:49)
[2017-10-23 11:00] VITALS: BP 142/68
[2017-10-23] MEDS: IRON SUCROSE COMPLEX 100 MG in SODIUM CHLORIDE 0.9% 50 ML IV SCH (11:07)
[2017-10-23 16:00] VITALS: BP 138/70
[2017-10-23 19:31] VITALS: BP 145/76
[2017-10-23] MEDS: ATORVASTATIN CALCIUM 20 MG TABLET PO SCH (21:50)
[2017-10-23 23:49] VITALS: BP 125/60
[2017-10-24] MEDS: IPRATROPIUM/ALBUTEROL SULFATE 3 ML SOLUTION IH SCH ×6 (02:11→22:55)
[2017-10-24 03:41] VITALS: BP 138/62
[2017-10-24 04:11] LABS: BASOPHILS % (AUTO) 0.9 % (0.0-5.0); LYMPHOCYTES % (AUTO) 12.1 % (21.0-51.0); MEAN CORPUSCULAR HEMOGLOBIN 31.6 pg (27.0-33.0); MEAN CORPUSCULAR HGB CONC 34.9 g/dL (32.0-36.0); MEAN CORPUSCULAR VOLUME 90.4 fL (79-99); MONOCYTES % (AUTO) 11.2 % (3.0-13.0); NEUTROPHILS % (AUTO) 71.8 % (40.0-77.0); PLATELET COUNT (AUTO) 117 K/uL (130-400); RED BLOOD CELL COUNT(AUTO) 2.28 MIL/uL (4.50-6.20); WHITE BLOOD COUNT (AUTO) 16.1 K/uL (4.8-10.8)
[2017-10-24 04:14] LABS: HEMATOCRIT 20.6 % (42-54)
[2017-10-24 04:24] LABS: CREATININE 2.9 mg/dL (0.5-1.5); POTASSIUM 3.7 mmol/L (3.5-5.1)
[2017-10-24] MEDS: INSULIN HUMULIN R 100 UNIT/ML 3ML SQ SCH ×4 (06:05→21:00)
[2017-10-24 07:24] VITALS: BP 137/73
[2017-10-24] MEDS ORDERED: CARVEDILOL 6.25 MG TABLET PO ONE (08:14)
[2017-10-24] MEDS: FUROSEMIDE 10 MG/ML 4ML VIAL IV SCH ×2 (08:21→20:05)
[2017-10-24] MEDS: POLYETHYLENE GLYCOL 3350 17 GM POWD.PACK PO SCH (08:21)
[2017-10-24] MEDS: CEFEPIME HCL 1 GM VIAL IVP SCH (08:21)
[2017-10-24] MEDS: IRON SUCROSE COMPLEX 100 MG in SODIUM CHLORIDE 0.9% 50 ML IV SCH (08:21)
[2017-10-24] MEDS: DOCUSATE SODIUM 100 MG CAP PO SCH (08:21)
[2017-10-24] MEDS: FINASTERIDE 5 MG TABLET PO SCH (08:22)
[2017-10-24] MEDS: DOXYCYCLINE 100MG+NS 250ML 250 ML IV SCH (08:22)
[2017-10-24] MEDS: TAMSULOSIN HCL 0.4 MG CAP.ER.24H PO SCH (08:22)
[2017-10-24] MEDS: CITALOPRAM 20 MG TABLET PO SCH (08:22)
[2017-10-24] MEDS: PANTOPRAZOLE SODIUM 40 MG TABLET.DR PO SCH (08:22)
[2017-10-24] MEDS: ASPIRIN 81MG TAB.CHEW PO SCH (08:22)
[2017-10-24] MEDS: SENNOSIDES 8.6 MG TABLET PO SCH (08:22)
[2017-10-24] MEDS: CARVEDILOL 6.25 MG TABLET PO SCH ×2 (08:23→20:06)
[2017-10-24 10:55] VITALS: BP 121/58
[2017-10-24 15:58] VITALS: BP 130/68
[2017-10-24 19:34] VITALS: BP 149/71
[2017-10-24] MEDS: ATORVASTATIN CALCIUM 20 MG TABLET PO SCH (20:05)
[2017-10-24 20:45] LABS: APPEARANCE,URINE Clear (CLEAR); BILIRUBIN,URINE Negative (NEGATIVE); COLOR,URINE Yellow (YELLOW); GLUCOSE, URINE (UA) Negative (NEGATIVE); KETONES,URINE Negative (NEGATIVE); LEUKOCYTE ESTERASE ,URINE Small (NEGATIVE); NITRATE,URINE Negative (NEGATIVE); OCCULT BLOOD,URINE Small (NEGATIVE); PROTEIN,URINE POS 2+ (NEGATIVE); UROBILINOGEN,URINE 0.2 mg/dL (0.2-1.0)
[2017-10-24 21:00] LABS: BACTERIA,URINE Few /HPF (None Seen); SQUAMOUS EPITHELIAL CELL,UR Rare /HPF (0-2)
[2017-10-24 21:01] LABS: MUCUS,URINE Rare LPF (None Seen)
[2017-10-24 23:25] VITALS: BP 141/73
[2017-10-25] MEDS: IPRATROPIUM/ALBUTEROL SULFATE 3 ML SOLUTION IH SCH ×6 (01:31→22:10)
[2017-10-25 04:02] VITALS: BP 138/67
[2017-10-25 04:41] LABS: EOSINOPHILS % (AUTO) 2.2 % (0.0-8.0); HEMATOCRIT 23.9 % (42-54); LYMPHOCYTES % (AUTO) 10.4 % (21.0-51.0); MEAN CORPUSCULAR VOLUME 90.7 fL (79-99); NEUTROPHILS % (AUTO) 77.4 % (40.0-77.0); PLATELET COUNT (AUTO) 133 K/uL (130-400); RED BLOOD CELL COUNT(AUTO) 2.63 MIL/uL (4.50-6.20); RED CELL DISTRIBUTION WIDTH 16.4 % (11.0-15.5); WHITE BLOOD COUNT (AUTO) 19.2 K/uL (4.8-10.8)
[2017-10-25 04:58] LABS: CREATININE 3.1 mg/dL (0.5-1.5); POTASSIUM 4.2 mmol/L (3.5-5.1)
[2017-10-25] MEDS: INSULIN HUMULIN R 100 UNIT/ML 3ML SQ SCH ×4 (05:44→21:00)
[2017-10-25 07:30] VITALS: BP 135/66
[2017-10-25] MEDS: DOCUSATE SODIUM 100 MG CAP PO SCH (07:49)
[2017-10-25] MEDS: FUROSEMIDE 10 MG/ML 4ML VIAL IV SCH ×2 (07:49→21:00)
[2017-10-25] MEDS: SENNOSIDES 8.6 MG TABLET PO SCH (07:49)
[2017-10-25] MEDS: CARVEDILOL 6.25 MG TABLET PO SCH ×2 (07:49→21:01)
[2017-10-25] MEDS: CITALOPRAM 20 MG TABLET PO SCH (07:49)
[2017-10-25] MEDS: IRON SUCROSE COMPLEX 100 MG in SODIUM CHLORIDE 0.9% 50 ML IV SCH (07:49)
[2017-10-25] MEDS: POLYETHYLENE GLYCOL 3350 17 GM POWD.PACK PO SCH (07:49)
[2017-10-25] MEDS: PANTOPRAZOLE SODIUM 40 MG TABLET.DR PO SCH (07:49)
[2017-10-25] MEDS: FINASTERIDE 5 MG TABLET PO SCH (07:49)
[2017-10-25] MEDS: TAMSULOSIN HCL 0.4 MG CAP.ER.24H PO SCH (07:49)
[2017-10-25] MEDS: ASPIRIN 81MG TAB.CHEW PO SCH (07:50)
[2017-10-25] MEDS: DOXYCYCLINE 100MG+NS 250ML 250 ML IV SCH ×2 (09:17→20:59)
[2017-10-25 11:13] VITALS: BP 137/66
[2017-10-25 13:35] LABS: GLUCOSE,BODY FLUID 144 mg/dL (1-40)
[2017-10-25 14:11] LABS: APPEARANCE BODY FLUID CLEAR (CLEAR); BODY FLUID WBC 145 /cu. mm.; COLOR,BODY FLUID LT YELLOW (LT YELLOW); SPECIMENTYPE,BODY FLUID THORACENTESIS; TOTAL VOLUME,BODY FLUID 350 mL
[2017-10-25 14:12] LABS: BODY FLUID RBC 200 /cu. mm.
[2017-10-25 14:27] LABS: BF LYMPHOCYTE 94 %; BF MESOTHELIAL 1 %
[2017-10-25 16:24] VITALS: BP 113/58
[2017-10-25 19:39] VITALS: BP 123/61
[2017-10-25] MEDS: ATORVASTATIN CALCIUM 20 MG TABLET PO SCH (20:58)
[2017-10-25 23:26] VITALS: BP 117/58
[2017-10-26] MEDS: IPRATROPIUM/ALBUTEROL SULFATE 3 ML SOLUTION IH SCH ×6 (01:46→21:49)
[2017-10-26 03:52] VITALS: BP 123/56
[2017-10-26 04:23] LABS: HEMATOCRIT 23.4 % (42-54); MEAN CORPUSCULAR HEMOGLOBIN 31.5 pg (27.0-33.0); MEAN CORPUSCULAR HGB CONC 34.6 g/dL (32.0-36.0); MEAN CORPUSCULAR VOLUME 90.8 fL (79-99); PLATELET COUNT (AUTO) 143 K/uL (130-400); RED BLOOD CELL COUNT(AUTO) 2.58 MIL/uL (4.50-6.20); RED CELL DISTRIBUTION WIDTH 16.1 % (11.0-15.5); WHITE BLOOD COUNT (AUTO) 19.9 K/uL (4.8-10.8)
[2017-10-26 04:55] LABS: CREATININE 3.4 mg/dL (0.5-1.5); POTASSIUM 3.9 mmol/L (3.5-5.1)
[2017-10-26] MEDS: INSULIN HUMULIN R 100 UNIT/ML 3ML SQ SCH ×4 (06:06→20:51)
[2017-10-26 07:39] VITALS: BP 122/52
[2017-10-26] MEDS ORDERED: FUROSEMIDE 10 MG/ML 4ML VIAL IV SCH (07:45)
[2017-10-26] MEDS: DOXYCYCLINE 100MG+NS 250ML 250 ML IV SCH ×2 (10:16→20:34)
[2017-10-26] MEDS: POLYETHYLENE GLYCOL 3350 17 GM POWD.PACK PO SCH (10:16)
[2017-10-26] MEDS: DOCUSATE SODIUM 100 MG CAP PO SCH (10:17)
[2017-10-26] MEDS: CITALOPRAM 20 MG TABLET PO SCH (10:17)
[2017-10-26] MEDS: TAMSULOSIN HCL 0.4 MG CAP.ER.24H PO SCH (10:17)
[2017-10-26] MEDS: ASPIRIN 81MG TAB.CHEW PO SCH (10:17)
[2017-10-26] MEDS: PANTOPRAZOLE SODIUM 40 MG TABLET.DR PO SCH (10:17)
[2017-10-26] MEDS: FINASTERIDE 5 MG TABLET PO SCH (10:17)
[2017-10-26] MEDS: SENNOSIDES 8.6 MG TABLET PO SCH (10:17)
[2017-10-26] MEDS: CARVEDILOL 6.25 MG TABLET PO SCH ×2 (10:18→23:15)
[2017-10-26 11:22] VITALS: BP 120/54
[2017-10-26 16:17] VITALS: BP 107/61
[2017-10-26] MEDS: IRON SUCROSE COMPLEX 100 MG in SODIUM CHLORIDE 0.9% 50 ML IV SCH (16:31)
[2017-10-26 19:49] VITALS: BP 124/63
[2017-10-26] MEDS ORDERED: FUROSEMIDE 10 MG/ML 2ML VIAL IV SCH (20:30)
[2017-10-26] MEDS: ATORVASTATIN CALCIUM 20 MG TABLET PO SCH (20:34)
[2017-10-26] MEDS: FUROSEMIDE 10 MG/ML 2ML VIAL IV SCH (20:34)
[2017-10-26 23:29] VITALS: BP 121/58
[2017-10-27] MEDS: IPRATROPIUM/ALBUTEROL SULFATE 3 ML SOLUTION IH SCH ×6 (02:25→23:46)
[2017-10-27 04:04] VITALS: BP 106/49
[2017-10-27 04:35] LABS: HEMATOCRIT 23.1 % (42-54); MEAN CORPUSCULAR HEMOGLOBIN 30.6 pg (27.0-33.0); MEAN CORPUSCULAR HGB CONC 33.6 g/dL (32.0-36.0); MEAN CORPUSCULAR VOLUME 91.2 fL (79-99); PLATELET COUNT (AUTO) 135 K/uL (130-400); RED BLOOD CELL COUNT(AUTO) 2.54 MIL/uL (4.50-6.20); WHITE BLOOD COUNT (AUTO) 18.9 K/uL (4.8-10.8)
[2017-10-27 04:58] LABS: CREATININE 3.6 mg/dL (0.5-1.5)
[2017-10-27] MEDS: INSULIN HUMULIN R 100 UNIT/ML 3ML SQ SCH ×4 (06:06→20:42)
[2017-10-27 07:07] LABS: ABG BASE EXCESS -1.3 mmol/L (-2.0-3.0); ABG HCO3 22.5 mmol/L (21.0-28.0); ABG PCO2 35 mmHg (35-48)
[2017-10-27 07:19] VITALS: BP 110/53
[2017-10-27] MEDS: CARVEDILOL 6.25 MG TABLET PO SCH (09:00)
[2017-10-27] MEDS ORDERED: PHARMACY COMMUNICATION MISC SCH ×2 (09:15)
[2017-10-27] MEDS ORDERED: CARVEDILOL 3.125 MG TABLET PO ONE (09:27)
[2017-10-27] MEDS: CARVEDILOL 3.125 MG TABLET PO SCH ×2 (09:30→22:23)
[2017-10-27] MEDS: PANTOPRAZOLE SODIUM 40 MG TABLET.DR PO SCH (09:37)
[2017-10-27] MEDS: FINASTERIDE 5 MG TABLET PO SCH (09:37)
[2017-10-27] MEDS: SENNOSIDES 8.6 MG TABLET PO SCH (09:37)
[2017-10-27] MEDS: CITALOPRAM 20 MG TABLET PO SCH (09:37)
[2017-10-27] MEDS: POLYETHYLENE GLYCOL 3350 17 GM POWD.PACK PO SCH (09:37)
[2017-10-27] MEDS: FUROSEMIDE 10 MG/ML 2ML VIAL IV SCH ×2 (09:38→19:59)
[2017-10-27] MEDS: DOCUSATE SODIUM 100 MG CAP PO SCH (09:38)
[2017-10-27] MEDS: DOXYCYCLINE 100MG+NS 250ML 250 ML IV SCH ×2 (09:38→22:51)
[2017-10-27] MEDS: ASPIRIN 81MG TAB.CHEW PO SCH (09:38)
[2017-10-27] MEDS: TAMSULOSIN HCL 0.4 MG CAP.ER.24H PO SCH (09:38)
[2017-10-27] MEDS ORDERED: COMPOUND IV MISC 1 EACH IVSOLN MISC PRN (10:00)
[2017-10-27 11:26] VITALS: BP 100/50
[2017-10-27] MEDS: MEROPENEM 500 MG VIAL IVP SCH ×2 (11:47→22:22)
[2017-10-27] MEDS: DOBUTAMINE HCL IV SCH (11:48)
[2017-10-27] MEDS: SODIUM CHLORIDE 0.9% IV SCH (11:48)
[2017-10-27 16:10] VITALS: BP 119/65
[2017-10-27] MEDS ORDERED: HEPARIN SODIUM 5000UNIT/ML 1ML VIAL SQ SCH (17:00)
[2017-10-27 19:32] VITALS: BP 117/53
[2017-10-27] MEDS: ATORVASTATIN CALCIUM 20 MG TABLET PO SCH (22:22)
[2017-10-27] MEDS: HEPARIN SODIUM 5000UNIT/ML 1ML VIAL SQ SCH (22:52)
[2017-10-27 23:41] VITALS: BP 113/57
[2017-10-28 03:55] VITALS: BP 107/57
[2017-10-28 04:19] LABS: ABG BASE EXCESS -0.8 mmol/L (-2.0-3.0); ABG HCO3 23.9 mmol/L (21.0-28.0); ABG OXYGEN SATURATION 96.1 % (95.0-99.0); ABG PCO2 40 mmHg (35-48)
[2017-10-28 04:22] LABS: HEMATOCRIT 23.5 % (42-54); MEAN CORPUSCULAR HEMOGLOBIN 31.8 pg (27.0-33.0); MEAN CORPUSCULAR HGB CONC 34.9 g/dL (32.0-36.0); MEAN CORPUSCULAR VOLUME 91.1 fL (79-99); PLATELET COUNT (AUTO) 109 K/uL (130-400); RED BLOOD CELL COUNT(AUTO) 2.57 MIL/uL (4.50-6.20); RED CELL DISTRIBUTION WIDTH 15.9 % (11.0-15.5); WHITE BLOOD COUNT (AUTO) 17.4 K/uL (4.8-10.8)
[2017-10-28 04:43] LABS: ALBUMIN 2.1 g/dL (3.5-5.0); BILIRUBIN,TOTAL 0.6 mg/dL (0.2-1.0); CREATININE 3.7 mg/dL (0.5-1.5); MAGNESIUM 1.8 mg/dL (1.80-2.40); PHOSPHORUS 5.2 mg/dL (2.5-4.9); TOTAL PROTEIN, SERUM 5.7 g/dL (6.0-8.3)
[2017-10-28] MEDS: IPRATROPIUM/ALBUTEROL SULFATE 3 ML SOLUTION IH SCH ×3 (06:16→18:47)
[2017-10-28] MEDS: INSULIN HUMULIN R 100 UNIT/ML 3ML SQ SCH ×4 (07:30→20:41)
[2017-10-28 07:39] VITALS: BP 121/50
[2017-10-28] MEDS: MEROPENEM 500 MG VIAL IVP SCH ×2 (08:06→20:09)
[2017-10-28] MEDS: FINASTERIDE 5 MG TABLET PO SCH (08:06)
[2017-10-28] MEDS: DOXYCYCLINE 100MG+NS 250ML 250 ML IV SCH (08:06)
[2017-10-28] MEDS: SENNOSIDES 8.6 MG TABLET PO SCH (08:07)
[2017-10-28] MEDS: DOCUSATE SODIUM 100 MG CAP PO SCH (08:07)
[2017-10-28] MEDS: PANTOPRAZOLE SODIUM 40 MG TABLET.DR PO SCH (08:07)
[2017-10-28] MEDS: CARVEDILOL 3.125 MG TABLET PO SCH (08:07)
[2017-10-28] MEDS: ASPIRIN 81MG TAB.CHEW PO SCH (08:07)
[2017-10-28] MEDS: TAMSULOSIN HCL 0.4 MG CAP.ER.24H PO SCH (08:07)
[2017-10-28] MEDS: CITALOPRAM 20 MG TABLET PO SCH ×2 (08:08→09:20)
[2017-10-28] MEDS: POLYETHYLENE GLYCOL 3350 17 GM POWD.PACK PO SCH (08:08)
[2017-10-28] MEDS: HEPARIN SODIUM 5000UNIT/ML 1ML VIAL SQ SCH ×2 (08:16→20:09)
[2017-10-28 11:18] VITALS: BP 128/61
[2017-10-28 16:22] VITALS: BP 123/62
[2017-10-28] MEDS: ATORVASTATIN CALCIUM 20 MG TABLET PO SCH (20:06)
[2017-10-28] MEDS: METOPROLOL TARTRATE 25 MG TAB PO SCH (20:07)
[2017-10-28 20:55] VITALS: BP 126/65
[2017-10-29] VITALS (7 sets, daily range): BP systolic 120–144; BP diastolic 56–69
[2017-10-29] MEDS: IPRATROPIUM/ALBUTEROL SULFATE 3 ML SOLUTION IH SCH ×5 (00:05→23:48)
[2017-10-29 04:19] LABS: ALBUMIN 2.2 g/dL (3.5-5.0); BILIRUBIN,TOTAL 0.6 mg/dL (0.2-1.0); CREATININE 3.8 mg/dL (0.5-1.5); POTASSIUM 4.3 mmol/L (3.5-5.1)
[2017-10-29] MEDS: INSULIN HUMULIN R 100 UNIT/ML 3ML SQ SCH ×4 (06:28→20:56)
[2017-10-29] MEDS: CITALOPRAM 20 MG TABLET PO SCH ×2 (07:06→07:27)
[2017-10-29] MEDS: FINASTERIDE 5 MG TABLET PO SCH (07:26)
[2017-10-29] MEDS: SENNOSIDES 8.6 MG TABLET PO SCH (07:26)
[2017-10-29] MEDS: PANTOPRAZOLE SODIUM 40 MG TABLET.DR PO SCH (07:26)
[2017-10-29] MEDS: DOCUSATE SODIUM 100 MG CAP PO SCH (07:26)
[2017-10-29] MEDS: POLYETHYLENE GLYCOL 3350 17 GM POWD.PACK PO SCH (07:26)
[2017-10-29] MEDS: METOPROLOL TARTRATE 25 MG TAB PO SCH ×2 (07:27→21:01)
[2017-10-29] MEDS: MEROPENEM 500 MG VIAL IVP SCH ×2 (07:27→21:00)
[2017-10-29] MEDS: TAMSULOSIN HCL 0.4 MG CAP.ER.24H PO SCH (07:27)
[2017-10-29] MEDS: ASPIRIN 81MG TAB.CHEW PO SCH (07:27)
[2017-10-29] MEDS: HEPARIN SODIUM 5000UNIT/ML 1ML VIAL SQ SCH ×2 (07:28→21:04)
[2017-10-29] MEDS: SODIUM CHLORIDE 0.9% IV SCH (09:47)
[2017-10-29] MEDS: DOBUTAMINE HCL IV SCH (09:47)
[2017-10-29] MEDS ORDERED: CALCIUM GLUCONATE 1 GM in DEXTROSE 5%-WATER 50 ML IV SCH (11:29)
[2017-10-29] MEDS: ATORVASTATIN CALCIUM 20 MG TABLET PO SCH (20:59)
[2017-10-29] MEDS ORDERED: CALCIUM GLUCONATE 1 GM/10 ML VIAL IV SCH (21:00)
[2017-10-29] MEDS: ZOLPIDEM TARTRATE 5 MG TAB PO SCH (21:31)
[2017-10-29] MEDS: EPOETIN ALFA 20,000 UNIT/ML VIAL SQ SCH (21:34)
[2017-10-30 03:39] VITALS: BP 142/64
[2017-10-30 03:51] LABS: HEMATOCRIT 24.7 % (42-54); MEAN CORPUSCULAR HEMOGLOBIN 31.8 pg (27.0-33.0); MEAN CORPUSCULAR HGB CONC 34.8 g/dL (32.0-36.0); MEAN CORPUSCULAR VOLUME 91.4 fL (79-99); PLATELET COUNT (AUTO) 104 K/uL (130-400); RED CELL DISTRIBUTION WIDTH 16.5 % (11.0-15.5)
[2017-10-30 04:01] LABS: CREATININE 3.6 mg/dL (0.5-1.5); POTASSIUM 4.2 mmol/L (3.5-5.1)
[2017-10-30] MEDS: IPRATROPIUM/ALBUTEROL SULFATE 3 ML SOLUTION IH SCH ×4 (06:11→23:31)
[2017-10-30] MEDS: INSULIN HUMULIN R 100 UNIT/ML 3ML SQ SCH ×4 (06:16→20:20)
[2017-10-30 07:25] VITALS: BP 128/63
[2017-10-30] MEDS: MEROPENEM 500 MG VIAL IVP SCH ×2 (08:11→21:11)
[2017-10-30] MEDS: TAMSULOSIN HCL 0.4 MG CAP.ER.24H PO SCH (08:12)
[2017-10-30] MEDS: METOPROLOL TARTRATE 25 MG TAB PO SCH ×2 (08:12→20:18)
[2017-10-30] MEDS: DOCUSATE SODIUM 100 MG CAP PO SCH (08:12)
[2017-10-30] MEDS: CITALOPRAM 20 MG TABLET PO SCH ×2 (08:12)
[2017-10-30] MEDS: PANTOPRAZOLE SODIUM 40 MG TABLET.DR PO SCH (08:12)
[2017-10-30] MEDS: SENNOSIDES 8.6 MG TABLET PO SCH (08:12)
[2017-10-30] MEDS: FINASTERIDE 5 MG TABLET PO SCH (08:13)
[2017-10-30] MEDS: ASPIRIN 81MG TAB.CHEW PO SCH (08:13)
[2017-10-30] MEDS: HEPARIN SODIUM 5000UNIT/ML 1ML VIAL SQ SCH (08:20)
[2017-10-30] MEDS: POLYETHYLENE GLYCOL 3350 17 GM POWD.PACK PO SCH (08:20)
[2017-10-30] MEDS: SODIUM CHLORIDE 0.9% IV SCH (10:55)
[2017-10-30] MEDS: DOBUTAMINE HCL IV SCH (10:55)
[2017-10-30 11:40] VITALS: BP 132/64
[2017-10-30 16:05] VITALS: BP 140/67
[2017-10-30 19:26] VITALS: BP 163/83
[2017-10-30] MEDS: ZOLPIDEM TARTRATE 5 MG TAB PO SCH (20:18)
[2017-10-30] MEDS: GUAIFENESIN 600 MG TABLET.ER PO SCH (20:18)
[2017-10-30] MEDS: ATORVASTATIN CALCIUM 20 MG TABLET PO SCH (20:18)
[2017-10-30] MEDS ORDERED: OXYMETAZOLINE HCL SPRAY 15 ML BOTTLE EN SCH (21:00)
[2017-10-30 23:57] VITALS: BP 126/62
[2017-10-31 03:32] VITALS: BP 138/66
[2017-10-31 04:17] LABS: CREATININE 3.4 mg/dL (0.5-1.5); POTASSIUM 4.2 mmol/L (3.5-5.1)
[2017-10-31] MEDS: IPRATROPIUM/ALBUTEROL SULFATE 3 ML SOLUTION IH SCH ×4 (06:06→23:53)
[2017-10-31] MEDS: INSULIN HUMULIN R 100 UNIT/ML 3ML SQ SCH ×4 (06:09→21:00)
[2017-10-31 07:50] VITALS: BP 136/61
[2017-10-31] MEDS: DOCUSATE SODIUM 100 MG CAP PO SCH (08:52)
[2017-10-31] MEDS: GUAIFENESIN 600 MG TABLET.ER PO SCH ×2 (08:52→20:57)
[2017-10-31] MEDS: FINASTERIDE 5 MG TABLET PO SCH (08:52)
[2017-10-31] MEDS: TAMSULOSIN HCL 0.4 MG CAP.ER.24H PO SCH (08:52)
[2017-10-31] MEDS: CITALOPRAM 20 MG TABLET PO SCH ×2 (08:52→08:53)
[2017-10-31] MEDS: METOPROLOL TARTRATE 25 MG TAB PO SCH ×2 (08:53→20:57)
[2017-10-31] MEDS: PANTOPRAZOLE SODIUM 40 MG TABLET.DR PO SCH (08:53)
[2017-10-31] MEDS: ASPIRIN 81MG TAB.CHEW PO SCH (08:53)
[2017-10-31] MEDS: POLYETHYLENE GLYCOL 3350 17 GM POWD.PACK PO SCH (08:53)
[2017-10-31] MEDS: SENNOSIDES 8.6 MG TABLET PO SCH (08:53)
[2017-10-31] MEDS: OXYMETAZOLINE HCL SPRAY 15 ML BOTTLE EN SCH ×2 (08:54→22:34)
[2017-10-31] MEDS: DOBUTAMINE HCL IV SCH (08:55)
[2017-10-31] MEDS: SODIUM CHLORIDE 0.9% IV SCH (08:55)
[2017-10-31] MEDS: MEROPENEM 500 MG VIAL IVP SCH ×2 (09:05→20:57)
[2017-10-31 11:37] VITALS: BP 145/63
[2017-10-31 16:00] VITALS: BP 144/61
[2017-10-31 19:30] VITALS: BP 147/64
[2017-10-31] MEDS: ZOLPIDEM TARTRATE 5 MG TAB PO SCH (20:57)
[2017-10-31] MEDS: ATORVASTATIN CALCIUM 20 MG TABLET PO SCH (20:57)
[2017-10-31 23:21] VITALS: BP 143/62
[2017-11-01 03:36] VITALS: BP 140/67
[2017-11-01 04:33] LABS: CREATININE 3.2 mg/dL (0.5-1.5)
[2017-11-01] MEDS: IPRATROPIUM/ALBUTEROL SULFATE 3 ML SOLUTION IH SCH ×4 (05:33→23:47)
[2017-11-01] MEDS: INSULIN HUMULIN R 100 UNIT/ML 3ML SQ SCH ×4 (05:50→21:00)
[2017-11-01 08:05] VITALS: BP 142/65
[2017-11-01] MEDS: CITALOPRAM 20 MG TABLET PO SCH ×2 (08:31→09:12)
[2017-11-01] MEDS: FINASTERIDE 5 MG TABLET PO SCH (09:11)
[2017-11-01] MEDS: SENNOSIDES 8.6 MG TABLET PO SCH (09:11)
[2017-11-01] MEDS: POLYETHYLENE GLYCOL 3350 17 GM POWD.PACK PO SCH (09:11)
[2017-11-01] MEDS: GUAIFENESIN 600 MG TABLET.ER PO SCH ×2 (09:11→21:06)
[2017-11-01] MEDS: MEROPENEM 500 MG VIAL IVP SCH ×2 (09:11→21:06)
[2017-11-01] MEDS: PANTOPRAZOLE SODIUM 40 MG TABLET.DR PO SCH (09:12)
[2017-11-01] MEDS: METOPROLOL TARTRATE 25 MG TAB PO SCH ×2 (09:12→21:06)
[2017-11-01] MEDS: TAMSULOSIN HCL 0.4 MG CAP.ER.24H PO SCH (09:12)
[2017-11-01] MEDS: ASPIRIN 81MG TAB.CHEW PO SCH (09:12)
[2017-11-01] MEDS: DOCUSATE SODIUM 100 MG CAP PO SCH (09:12)
[2017-11-01] MEDS: OXYMETAZOLINE HCL SPRAY 15 ML BOTTLE EN SCH ×2 (09:13→21:00)
[2017-11-01 12:00] VITALS: BP 113/56
[2017-11-01] MEDS ORDERED: FUROSEMIDE 20 MG TABLET PO SCH (17:00)
[2017-11-01 17:37] VITALS: BP 140/65
[2017-11-01 19:29] VITALS: BP 145/66
[2017-11-01] MEDS: ATORVASTATIN CALCIUM 20 MG TABLET PO SCH (21:06)
[2017-11-01 23:33] VITALS: BP 125/60
[2017-11-02 03:59] VITALS: BP 134/61
[2017-11-02 04:32] LABS: HEMATOCRIT 25.7 % (42-54); MEAN CORPUSCULAR HEMOGLOBIN 30.8 pg (27.0-33.0); MEAN CORPUSCULAR HGB CONC 33.5 g/dL (32.0-36.0); MEAN CORPUSCULAR VOLUME 92.1 fL (79-99); PLATELET COUNT (AUTO) 111 K/uL (130-400); RED BLOOD CELL COUNT(AUTO) 2.79 MIL/uL (4.50-6.20); WHITE BLOOD COUNT (AUTO) 11.5 K/uL (4.8-10.8)
[2017-11-02 04:51] LABS: POTASSIUM 4.2 mmol/L (3.5-5.1)
[2017-11-02] MEDS: INSULIN HUMULIN R 100 UNIT/ML 3ML SQ SCH ×3 (06:26→16:30)
[2017-11-02] MEDS: IPRATROPIUM/ALBUTEROL SULFATE 3 ML SOLUTION IH SCH ×2 (06:39→11:17)
[2017-11-02 07:25] VITALS: BP 138/59
[2017-11-02] MEDS ORDERED: LEVOFLOXACIN 500 MG TABLET PO SCH (09:00)
[2017-11-02] MEDS ORDERED: FUROSEMIDE 40 MG TABLET PO SCH (09:00)
[2017-11-02] MEDS: POLYETHYLENE GLYCOL 3350 17 GM POWD.PACK PO SCH (09:00)
[2017-11-02] MEDS ORDERED: FUROSEMIDE 80 MG TABLET PO SCH (09:00)
[2017-11-02] MEDS: TAMSULOSIN HCL 0.4 MG CAP.ER.24H PO SCH (10:29)
[2017-11-02] MEDS: PANTOPRAZOLE SODIUM 40 MG TABLET.DR PO SCH (10:29)
[2017-11-02] MEDS: DOCUSATE SODIUM 100 MG CAP PO SCH (10:29)
[2017-11-02] MEDS: SENNOSIDES 8.6 MG TABLET PO SCH (10:29)
[2017-11-02] MEDS: METOPROLOL TARTRATE 25 MG TAB PO SCH (10:29)
[2017-11-02] MEDS: OXYMETAZOLINE HCL SPRAY 15 ML BOTTLE EN SCH (10:30)
[2017-11-02] MEDS: CITALOPRAM 20 MG TABLET PO SCH (10:30)
[2017-11-02] MEDS: GUAIFENESIN 600 MG TABLET.ER PO SCH (10:30)
[2017-11-02] MEDS: ASPIRIN 81MG TAB.CHEW PO SCH (10:30)
[2017-11-02] MEDS: FINASTERIDE 5 MG TABLET PO SCH (10:30)
[2017-11-02 11:20] VITALS: BP 129/66
[2017-11-02 16:10] VITALS: BP 138/90
== END 2017-11-02 19:20 | DRG 219 ==
LOC: DAHIP 06:13 → EDSTATUS 08:00 → 2CV 11:09 → 2CH 10-13 17:37 → 2DH 10-21 18:55
PROVIDERS: ADMIT Thoracic Surgery (Cardiothoracic Vascular Surgery); ATTEND Thoracic Surgery (Cardiothoracic Vascular Surgery)
PROC: 5A1935Z Respiratory Ventilation, Less than 24 Consecutive Hours (ICD-10-PCS; 2017-10-12)
PROC: 0BH17EZ Insertion of Endotracheal Airway into Trachea, Via Natural or Artificial Opening (ICD-10-PCS; 2017-10-12)
PROC: 02RF08Z Replacement of Aortic Valve with Zooplastic Tissue, Open Approach (ICD-10-PCS; principal; 2017-10-12 08:00)
PROC: 5A1221Z Performance of Cardiac Output, Continuous (ICD-10-PCS; 2017-10-12 08:00)
PROC: 5A09357 Assistance with Respiratory Ventilation, Less than 24 Consecutive Hours, Continuous Positive Airway Pressure (ICD-10-PCS; 2017-10-16)
PROC: 5A09357 Assistance with Respiratory Ventilation, Less than 24 Consecutive Hours, Continuous Positive Airway Pressure (ICD-10-PCS; 2017-10-16)
PROC: 5A09357 Assistance with Respiratory Ventilation, Less than 24 Consecutive Hours, Continuous Positive Airway Pressure (ICD-10-PCS; 2017-10-17)
PROC: 5A09357 Assistance with Respiratory Ventilation, Less than 24 Consecutive Hours, Continuous Positive Airway Pressure (ICD-10-PCS; 2017-10-18)
PROC: 30233N1 Transfusion of Nonautologous Red Blood Cells into Peripheral Vein, Percutaneous Approach (ICD-10-PCS; 2017-10-19)
PROC: 5A09357 Assistance with Respiratory Ventilation, Less than 24 Consecutive Hours, Continuous Positive Airway Pressure (ICD-10-PCS; 2017-10-20)
PROC: 0JH606Z Insertion of Pacemaker, Dual Chamber into Chest Subcutaneous Tissue and Fascia, Open Approach (ICD-10-PCS; 2017-10-20)
PROC: 02H63JZ Insertion of Pacemaker Lead into Right Atrium, Percutaneous Approach (ICD-10-PCS; 2017-10-20)
PROC: 02HK3JZ Insertion of Pacemaker Lead into Right Ventricle, Percutaneous Approach (ICD-10-PCS; 2017-10-20)
PROC: 5A09357 Assistance with Respiratory Ventilation, Less than 24 Consecutive Hours, Continuous Positive Airway Pressure (ICD-10-PCS; 2017-10-22)
PROC: 5A09357 Assistance with Respiratory Ventilation, Less than 24 Consecutive Hours, Continuous Positive Airway Pressure (ICD-10-PCS; 2017-10-23)
PROC: 0W9B3ZZ Drainage of Left Pleural Cavity, Percutaneous Approach (ICD-10-PCS; 2017-10-25)
PROC: 5A09357 Assistance with Respiratory Ventilation, Less than 24 Consecutive Hours, Continuous Positive Airway Pressure (ICD-10-PCS; 2017-10-25)
PROC: 5A09357 Assistance with Respiratory Ventilation, Less than 24 Consecutive Hours, Continuous Positive Airway Pressure (ICD-10-PCS; 2017-10-26)
PROC: 5A09357 Assistance with Respiratory Ventilation, Less than 24 Consecutive Hours, Continuous Positive Airway Pressure (ICD-10-PCS; 2017-10-28)
PROC: 5A09357 Assistance with Respiratory Ventilation, Less than 24 Consecutive Hours, Continuous Positive Airway Pressure (ICD-10-PCS; 2017-10-29)
PROC: 0W993ZZ Drainage of Right Pleural Cavity, Percutaneous Approach (ICD-10-PCS; 2017-10-29)
PROC: 5A09357 Assistance with Respiratory Ventilation, Less than 24 Consecutive Hours, Continuous Positive Airway Pressure (ICD-10-PCS; 2017-10-30)
DX: I35.0 Nonrheumatic aortic (valve) stenosis (principal); R57.0 Cardiogenic shock; J96.21 Acute and chronic respiratory failure with hypoxia; I13.2 Hypertensive heart and chronic kidney disease with heart failure and with stage 5 chronic kidney disease, or end stage renal disease; I44.2 Atrioventricular block, complete; N17.9 Acute kidney failure, unspecified; E11.21 Type 2 diabetes mellitus with diabetic nephropathy; D69.59 Other secondary thrombocytopenia; N18.5 Chronic kidney disease, stage 5; I50.43 Acute on chronic combined systolic (congestive) and diastolic (congestive) heart failure; J18.1 Lobar pneumonia, unspecified organism; I13.0 Hypertensive heart and chronic kidney disease with heart failure and stage 1 through stage 4 chronic kidney disease, or unspecified chronic kidney disease; D62 Acute posthemorrhagic anemia; I42.9 Cardiomyopathy, unspecified; N39.0 Urinary tract infection, site not specified; E11.22 Type 2 diabetes mellitus with diabetic chronic kidney disease; E11.649 Type 2 diabetes mellitus with hypoglycemia without coma; D63.8 Anemia in other chronic diseases classified elsewhere; E66.9 Obesity, unspecified; E11.65 Type 2 diabetes mellitus with hyperglycemia; E78.5 Hyperlipidemia, unspecified; F32.9 Major depressive disorder, single episode, unspecified; I25.10 Atherosclerotic heart disease of native coronary artery without angina pectoris; I34.0 Nonrheumatic mitral (valve) insufficiency; K21.9 Gastro-esophageal reflux disease without esophagitis; K59.00 Constipation, unspecified; R62.7 Adult failure to thrive; I87.2 Venous insufficiency (chronic) (peripheral); N41.9 Inflammatory disease of prostate, unspecified; R04.0 Epistaxis; N40.0 Benign prostatic hyperplasia without lower urinary tract symptoms; Z79.82 Long term (current) use of aspirin; Z79.899 Other long term (current) drug therapy; Z82.49 Family history of ischemic heart disease and other diseases of the circulatory system; Z83.3 Family history of diabetes mellitus; Z95.0 Presence of cardiac pacemaker; Z99.81 Dependence on supplemental oxygen; Z68.28 Body mass index [BMI] 28.0-28.9, adult
CPT/HCPCS: 32554; 33208; 36415; 36430; 36600; 71045; 71046; 74230; 76770; 76998; 80048; 80053; 80061; 81001; 82330; 82435; 82803; 82945; 82947; 82948; 83036; 83540; 83550; 83605; 83615; 83735; 83880; 84100; 84132; 84157; 84295; 84300; 85018; 85025; 85027; 85347; 85610; 85730; 86850; 86900; 86901; 86922; 87040; 87071; 87088; 87205; 88108; 88341; 88342; 89051; 92611; 93005; 93306; 93318; 93880; 94002; 94010; 94150; 94640; 94660; 94664; 94760; 97039; 99152; 99153; A4218; A4606; A7048; C1729; C1785; J0171; J0282; J0610; J0692; J0696; J0697; J0885; J1100; J1250; J1644; J1756; J1815; J1940; J2001; J2150; J2175; J2185; J2250; J2260; J2704; J2720; J3010; J3370; J3480; J3490; J7030; J7040; J7060; J7120; P9016; P9047